=== PATIENT | male | born 1975 | race Hispanic/Latino ===

== ENCOUNTER 2019-07-04 16:14 | Emergency (ER) | payer OTHER ==
[~2019-07-04] VITALS: Ht 180.3 cm; Wt 83.9 kg
--- OUTSIDE RECORDS SUMMARY | 2019-07-04 16:17 | XMS REPORT | Encounter Summary ---
Author Organization Unknown Address [address] [place] [address] Phone [phone] Reason for Visit Medical Complaint Instructions 1. Allergic rhinitis allergies: care instructions managing your allergies: care instructions Depo-Medrol 80 mg/mL suspension for injection 2. Elevated blood pressure elevated blood pressure: care instructions dash diet: care instructions blood pressure monitoring education 3. Body mass index 25-29 - overweight learning about healthy weight Discussion Note: None recorded. Plan of Care Patient Instructions Rhinitis is swelling and irritation in the nose. Allergies and infections are often the cause. Your nose may run or feel stuffy. Other symptoms are itchy and sore eyes, ears, throat, and mouth. If allergies are the cause, your doctor may do tests to find out what you are allergic to. You may be able to stop symptoms if you avoid the things that cause them. Your doctor may suggest or prescribe medicine to ease your symptoms. Follow-up care is a ford part of your treatment and safety. Be sure to make and go to all appointments, and call your doctor if you are having problems. It's also a good idea to know your test results and keep a list of the medicines you take. How can you care for yourself at home? If your rhinitis is caused by allergies, try to find out what sets off (triggers) your symptoms. Take steps to avoid these triggers. Avoid yard work. It can stir up both pollen and mold. Do not smoke or allow others to smoke around you. If you need help quitting, talk to your doctor about stop-smoking programs and medicines. These can increase your chances of quitting for good. Do not use aerosol sprays, cleaning products, or perfumes. If pollen is one of your triggers, close your house and car windows during blooming season. Clean your house often to control dust. Keep pets outside. If your doctor recommends trmj-axv-[id number] medicines to relieve symptoms, take your medicines exactly as prescribed. Call your doctor if you think you are having a problem with your medicine. Use saline (saltwater) nasal washes to help keep your nasal passages open and wash out mucus and bacteria. You can buy saline nose drops at a grocery store or drugstore. Or you can make your own at home by adding 1 teaspoon of salt and 1 teaspoon of baking soda to 2 cups of distilled water. If you make your own, fill a bulb syringe with the solution, insert the tip into your nostril, and squeeze gently. Blow your nose. When should you call for help? Call your doctor now or seek immediate medical care if: You are having trouble breathing. Watch closely for changes in your health, and be sure to contact your doctor if: Mucus from your nose gets thicker (like pus) or has new blood in it. You have new or worse symptoms. You do not get better as expected. Reminders Provider Appointments None recorded. Lab None recorded. Referral None recorded. Procedures None recorded. Surgeries None recorded. Imaging None recorded. Medications Name Start Date Afluria Quad (PF) 60 mcg (15 mcg x 4)/0.5 mL IM syringe ADM 0.5ML IM UTD Elizabeth-D 24 Hour 180 mg-240 mg tablet,extended release TK 1 T PO BID FOR 3 DAYS THEN TAKE PRN ONLY amoxicillin 875 mg-potassium clavulanate 125 mg tablet Take 1 tablet every 12 hours by oral route with meals for 10 days. Claritin-D Depo-Medrol 80 mg/mL suspension for injection 80 mg/mL IM injectable x 1 Dymista 137 mcg-50 mcg/spray nasal spray Take 1 spray twice a day by nasal route as directed. hydrocodone 5 mg-acetaminophen 325 mg tablet levofloxacin 500 mg tablet TK 1 T PO QD Medications Administered Name Date Depo-Medrol 80 mg/mL suspension for injection 80 mg/mL IM injectable x 1 1381-84-37E62:51:29 Vitals Height Weight BMI Blood Pressure 5 ft 11 in 200 lbs 27.9 kg/m2 122/72 mm[Hg] Lab Results None recorded. Allergies Code Code System Name Reaction Severity Status Onset NKDA Problems Name Status Onset Date Source Acute Atopic Conjunctivitis Active Encounter Acute Allergic Serous Otitis Media Active Encounter Dysfunction of Eustachian Tube Active Encounter Acute Suppurative Otitis Media without Spontaneous Rupture of Ear Drum Active Encounter Otitis Media Active Encounter Acute Sinusitis Active Encounter Sinusitis Active Encounter Allergic Rhinitis Active Encounter Dizziness and Giddiness Active Encounter Malaise and Fatigue Active Encounter Procedures None recorded. 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 History of Present Illness Cjibp-Bftntgfmzj-Hdmfjxo Reported By: Patient HPI: Location: head/sinuses. Quality: nasal/sinus congestion. Duration: 1days. Severity: moderate. Onset/Timing: gradual. Context: no sick contacts, no foreign travel, non-smoker. Associated Symptoms: no sputum production, no shortness of breath, no wheezing, no change in number of pillows needed to sleep at night, no sweats, no significant weight gain, no significant weight loss, no morning cough, no sore throat, no vomiting, no diarrhea, no rash, no nausea, no fever, no muscle aches, no headache Review of Systems:ROS as noted in the HPI Review of Systems Basic Reported By: Patient Physical Exam Adult Basic, Adult Male Complete Reported By: Patient Constitutional: General Appearance: healthy-appearing, well-nourished, well-developed, overweight. Level of Distress: NAD. Ambulation: ambulating normally Psychiatric: Mental Status: active and alert. Orientation: to time, to place, to person Ssr-Vxwf-Xucuu-Throat: Ears: no lesions on external ear, no outer ear tenderness, EACs clear, TMs clear. Hearing: no hearing loss. Nose: no lesions on external nose, nares patent, no septal deviation, nasal passages clear, no sinus tenderness, no nasal discharge. Lips, Teeth, and Gums: no mouth or lip ulcers, no bleeding gums, normal dentition. Oropharynx: moist mucous membranes, no erythema, no exudates, tonsils not enlarged Lungs: Respiratory effort: no dyspnea, no tachypnea, no use of accessory muscles, no intercostal retractions. Auscultation: breath sounds normal, good air movement Cardiovascular: Heart Auscultation: RRR, no murmurs
--- OUTSIDE RECORDS SUMMARY | 2019-07-04 16:17 | XMS REPORT | Continuity of Care Document ---
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 Name Role Phone [employer] Unavailable Unavailable Problems Problem Status Onset Date Classification Date Reported Comments Source Body mass index 25-29 - overweight 09/16/2018 Diagnosis 09/19/2018 [facility] Elevated blood pressure 09/16/2018 Diagnosis 09/19/2018 [facility] Acute atopic conjunctivitis Problem 09/19/2018 [facility] Acute allergic serous otitis media Problem 09/19/2018 [facility] Dysfunction of eustachian tube Problem 09/19/2018 [facility] Acute suppurative otitis media without spontaneous rupture of ear drum Problem 09/19/2018 [facility] Otitis media Problem 09/19/2018 [facility] Acute sinusitis Problem 09/19/2018 [facility] Sinusitis Problem 09/19/2018 [facility] Allergic rhinitis Problem 09/19/2018 [facility] Dizziness and giddiness Problem 09/19/2018 [facility] Malaise and fatigue Problem 09/19/2018 [facility] Medications Medication Details Route Status Patient Instructions Ordering Provider Order Date Source 0.5 ML influenza A virus A//[id number] (H1N1) antigen 0.03 MG/ML / influenza A virus A/[id number] (H3N2) antigen 0.03 MG/ML / influenza B virus B/[place] antigen 0.03 MG/ML / influenza B virus B/[facility] antigen 0.03 MG/ML Prefilled Syringe [Afluria Quadrivalent [id number]] Afluria Quad [id number] (PF) 60 mcg (15 mcg x 4)/0.5 mL IM syringe ADM 0.5ML IM UTD Active [facility] 24 HR Fexofenadine hydrochloride 180 MG / Pseudoephedrine Hydrochloride 240 MG Extended Release Oral Tablet [Elizabeth-D] Elizabeth-D 24 Hour 180 mg- 240 mg tablet,extended release TK 1 T PO BID FOR 3 DAYS THEN TAKE PRN ONLY Active [facility] Amoxicillin 875 MG / Clavulanate 125 MG Oral Tablet amoxicillin 875 mg-potassium clavulanate 125 mg tablet Take 1 tablet every 12 hours by oral route with meals for 10 days. Active [facility] Claritin-D Claritin-D Active [facility] 1 ML methylprednisolone acetate 80 MG/ML Injection [Depo-Medrol] Depo-Medrol 80 mg/mL suspension for injection 80 mg/mL IM injectable x 1 Active [facility] Azelastine hydrochloride 0.137 MG/ACTUAT / Fluticasone propionate 0.05 MG/ACTUAT Metered Dose Nasal [place] [Dymista] Dymista 137 mcg-50 mcg/spray nasal spray Take 1 spray twice a day by nasal route as directed. Active [facility] Acetaminophen 325 MG / Hydrocodone Bitartrate 5 MG Oral Tablet hydrocodone 5 mg-acetaminophen 325 mg tablet Active [facility] Levofloxacin 500 MG Oral Tablet levofloxacin 500 mg tablet TK 1 T PO QD Active [facility] Allergies, Adverse Reactions, Alerts No Known Medication Allergies Immunizations Immunization Date Given Site Status Last Updated Comments Source influenza, seasonal, injectable 08/10/2013 completed [facility] Results No Data Provided for This Section Pathology Reports No Data Provided for This Section Diagnostic Reports No Data Provided for This Section Consultation Notes No Data Provided for This Section Discharge Summaries No Data Provided for This Section History and Physicals No Data Provided for This Section Vital Signs Vital Sign Value Date Comments Source Diastolic (mm Hg) 72 09/16/2018 [facility] Height 71 09/16/2018 [facility] Systolic (mm Hg) 122 09/16/2018 [facility] Weight 200 09/16/2018 [facility] Encounters Location Location Details Encounter Type Encounter Number Reason For Visit Attending Provider ADM Date DC Date Status Source [place] - [facility] - [id number] Meek-C: [address] [place] [address], Ph. [id number] Lynn Pinzon 09/16/2018 [facility] [place] [facility] - [id number] Meek-C: [address], [place] [address], Ph. [id number] Lynn Tangwe 09/16/2018 [facility] Procedures No Data Provided for This Section Assessment and Plan No Data Provided for This Section Plan of Care No Data Provided for This Section Social History Social History Date Source Smoking Status Never Smoker 07/13/2011 [facility] Family History No Data Provided for This Section Advance Directives No Data Provided for This Section Functional Status No Data Provided for This Section
--- OUTSIDE RECORDS SUMMARY | 2019-07-04 16:17 | XMS REPORT | Encounter Summary ---
Author Organization Unknown Address [address] [place] [address] Phone [phone] Reason for Visit Medical Complaint Instructions 1. [...] Keep pets outside. If your doctor recommends hprw-iur-iwruvga medicines to relieve symptoms, take your medicines [...] Imaging None recorded. Medications Name Start Date Jannette Quad (PF) 60 mcg/0.5 mL intramuscular syringe ADM 0.5ML IM UTD Elizabeth-D 24 [...] injection 80 mg/mL IM injectable x 1 9570-85-22Q16:51:29 Vitals Height Weight BMI Blood Pressure 5 [...] Body Mass Index 25-29 - Overweight Lynn Pinzon, CONCRETE STONE FABRICATOR-C: [address] [place] [address], Ph. History of Present Illness Ekdip-[id number]-[id number] Reported By: Patient HPI: Location: head/sinuses. Quality: [...] Orientation: to time, to place, to person Kbi-Nihi-Wkyry-Throat: Ears: no lesions on external ear, no [...]
[2019-07-04] MEDS ORDERED: NAPROSYN500 MG PO (16:43)
--- NOTE | 2019-07-04 17:14 | Diagnostic Imaging Report ---
Exam: Head CT without contrast History: Headache, neck pain Comparison studies: None Technique: Axial images were obtained from the skull base to the vertex. Coronal and sagittal images reconstructed from the axial data. Dose modulation, iterative reconstruction, and/or weight based adjustment of the mA/kV was utilized to reduce the radiation dose to as low as reasonably achievable. Radiation dose: Total DLP: 969 mGy*cm. Estimated effective dose: DLP x 0.015 Intravenous contrast: None Findings: Scalp: No abnormalities. Bones: No fractures, blastic or lytic lesions. Brain sulci: Appropriate for age. Ventricles: Normal in size and configuration. No hydrocephalus. Extra-axial spaces: No masses, no fluid collection. Parenchyma: No abnormal densities. No masses, acute hemorrhage, acute or chronic vascular insults. Incidental all punctate physiologic calcifications in the left globus pallidus. Sellar/suprasellar region: No abnormalities. Craniocervical junction: Patent foramen magnum. No Chiari one malformation. Included paranasal sinuses: Clear. Middle ear and mastoids: Clear. IMPRESSION: No abnormalities. Signed by: Dr. Abisai Gastelum M.D. on 07/04/2019 5:11 PM
--- NOTE | 2019-07-04 17:20 | Diagnostic Imaging Report ---
EXAMINATION: C SPINE 4-5 VIEW - HOPD INDICATION: Neck pain COMPARISON: None FINDINGS: No acute fracture. Alignment is anatomic. Mild multilevel degenerative changes of the cervical spine with disc space narrowing and small osteophytes. The prevertebral soft tissues are normal in thickness. IMPRESSION: Anatomic alignment of the cervical spine with no acute osseous injury. Mild degenerative changes. Signed by: Carlo Garber MD on 07/04/2019 5:17 PM
[2019-07-04 18:02] VITALS: BP 137/79
== END 2019-07-04 18:04 | disposition home or self-care (01) ==
LOC: FSED 16:14
DX: G43.109 Migraine with aura, not intractable, without status migrainosus (principal); G44.1 Vascular headache, not elsewhere classified; G44.89 Other headache syndrome; M54.2 Cervicalgia
CPT/HCPCS: 70450; 72050; 99283

== ENCOUNTER 2020-04-03 19:55 | Emergency (ER) | payer OTHER ==
[~2020-04-03] VITALS: Ht 180.3 cm; Wt 83.9 kg
[~2020-04-03 19:55] MED LIST: NAPROSYN500 MG PO
--- NOTE | 2020-04-03 21:17 | Diagnostic Imaging Report ---
EXAMINATION: Head CT without contrast. HISTORY:Pain, fall. COMPARISON:CT brain from 07/04/2019. TECHNIQUE: Multidetector axial images were obtained from the foramen magnum to the vertex without contrast. The images were reconstructed using brain and bone algorithms. Thin section brain images were reformatted into coronal and sagittal planes. Dose modulation, iterative reconstruction, and/or weight based adjustment of the mA/kV was utilized to reduce the radiation dose to as low as reasonably achievable. Intravenous contrast: None IMAGE QUALITY: Acceptable. FINDINGS: Skull/scalp: No lytic or blastic. lesions. No surgical changes. Parenchyma: No abnormal density. No acute hemorrhage, mass or acute major vascular territorial infarct. Arteries: No density suggestive of thrombosis. Dural sinuses: No abnormal density suggestive of thrombosis. Ventricles: No hydrocephalus or displacement. Extra-axial spaces: No abnormal density. Brain volume: Normal for age. Craniocervical junction: No mass, Chiari malformation, or basilar invagination. Sella: No mass. Paranasal/mastoid sinuses: Imaged portions unremarkable. IMPRESSION: No intracranial abnormality. Signed by: Dr. Valentine Valle M.D. on 04/03/2020 9:14 PM
--- NOTE | 2020-04-03 21:22 | Diagnostic Imaging Report ---
History: Pain, fall. Comparison studies: X-ray cervical spine from 07/04/2019. Technique: Axial images were obtained through the cervical region.. Coronal and sagittal images reconstructed from the axial data. Dose modulation, iterative reconstruction, and/or weight based adjustment of the mA/kV was utilized to reduce the radiation dose to as low as reasonably achievable. Intravenous contrast: None Findings: Fractures: None. Soft tissue injuries: None. Atlantoaxial articulation: Intact. Alignment: Normal lordosis. No scoliosis. No subluxation Cervicomedullary junction: No abnormalities. The foramen magnum is patent. Soft tissues: No abnormalities. Vertebrae: No fractures, infection or neoplasm. Degenerative changes: C5-C6: Mild left foraminal stenosis due to facet and uncovertebral arthrosis.. IMPRESSION: 1. No acute cervical spine fracture or dislocation. 2. Ligament, spinal cord and or vascular abnormalities cannot be excluded on the basis of this examination. 3. Mild left foraminal stenosis due to facet and uncovertebral arthrosis at C5-C6. Signed by: Dr. Valentine Valle M.D. on 04/03/2020 9:18 PM
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
== END 2020-04-03 22:00 | disposition home or self-care (01) ==
LOC: FSED 19:55
DX: M54.12 Radiculopathy, cervical region (principal); M79.18 Myalgia, other site; F41.9 Anxiety disorder, unspecified
CPT/HCPCS: 70450; 72125; 99283

== ENCOUNTER 2020-11-15 19:32 | Emergency (ER) | payer OTHER ==
[~2020-11-15] VITALS: Ht 180.3 cm; Wt 83.9 kg
== END 2020-11-15 20:23 | disposition home or self-care (01) ==
LOC: FSED 19:55
DX: R07.89 Other chest pain (principal); M25.512 Pain in left shoulder; F41.9 Anxiety disorder, unspecified; E78.5 Hyperlipidemia, unspecified
CPT/HCPCS: 93005; 99283

== ENCOUNTER 2021-03-15 19:26 | Emergency (ER) | payer OTHER ==
[~2021-03-15] VITALS: Ht 180.3 cm; Wt 83.9 kg
[2021-03-15 21:42] VITALS: BP 142/90
== END 2021-03-15 21:42 | disposition home or self-care (01) ==
LOC: FSED 20:05
DX: R42 Dizziness and giddiness (principal); F41.9 Anxiety disorder, unspecified; E78.5 Hyperlipidemia, unspecified
CPT/HCPCS: 80053; 81003; 85025; 93005; 99283

== ENCOUNTER → 2021-04-17 | Day surgery (SDC) | payer OTHER ==
[~2021-04-17] MED LIST changes: +BUPIVACAINE HCL 0.5% INJ 30 ML VIAL INJ ONE; +DEXAMETHASONE SOD PHOS INJ 4 MG/ML VIAL ONE; +FENTANYL CITRATE/PF 100MCG/2 ML INJ ONE; +FISH OIL PO; +LIDOCAINE HCL 2% LOCAL INJ 5 ML SDV VIAL INJ ONE; +MIDAZOLAM HCL 2 MG/2 ML VIAL ONE; +MULTI-VITAMIN1 EACH PO; +ONDANSETRON HCL INJ 2MG/ML 2ML 2 MG/ML VIAL ONE; +POVIDONE IODINE 0.05% 0.05 % ML PO ONE; +PROPOFOL IV EMULSION 10 MG/ML 20 ML VIAL ONE; +SEVOFLURANE INHAL SOLN 250 ML PEN BTL ONE; +SODIUM CHLORIDE 0.9% 50ML 50 ML ONE
[2021-04-17 08:15] VITALS: BP 123/86
== END | disposition home or self-care (01) ==
LOC: OR 05:23
PROVIDERS: ATTEND Podiatrist Foot & Ankle Surgery
DX: M77.52 Other enthesopathy of left foot and ankle (principal)
CPT/HCPCS: 28108 ×2; J0690; J1100; J2001; J2250; J2405; J2704; J3010

== ENCOUNTER 2021-11-20 15:29 | Emergency (ER) | payer OTHER ==
[~2021-11-20] VITALS: Ht 180.3 cm; Wt 83.9 kg
[~2021-11-20 15:29] MED LIST changes: -BUPIVACAINE HCL 0.5% INJ 30 ML VIAL INJ ONE; -DEXAMETHASONE SOD PHOS INJ 4 MG/ML VIAL ONE; -FENTANYL CITRATE/PF 100MCG/2 ML INJ ONE; -LIDOCAINE HCL 2% LOCAL INJ 5 ML SDV VIAL INJ ONE; -MIDAZOLAM HCL 2 MG/2 ML VIAL ONE; -ONDANSETRON HCL INJ 2MG/ML 2ML 2 MG/ML VIAL ONE; -POVIDONE IODINE 0.05% 0.05 % ML PO ONE; -PROPOFOL IV EMULSION 10 MG/ML 20 ML VIAL ONE; -SEVOFLURANE INHAL SOLN 250 ML PEN BTL ONE; -SODIUM CHLORIDE 0.9% 50ML 50 ML ONE
[2021-11-20] MEDS ORDERED: SODIUM CHLORIDE 0.9% 1000ML 1,000 ML IV STA (15:48)
[2021-11-20 16:15] LABS: BASOPHILS # (AUTO) 0.1 (0.0-0.1); BASOPHILS % 0.7 % (0.0-1.0); EOSINOPHILS # (AUTO) 0.2 (0.0-0.4); EOSINOPHILS % 2.2 % (0.0-6.0); HEMATOCRIT 46.8 % (38.2-49.6); HEMOGLOBIN 15.1 g/dL (14.0-18.0); LYMPHOCYTES # (AUTO) 2.4 (1.0-3.2); LYMPHOCYTES % 32.7 % (18.0-39.1); MEAN CORPUSCULAR HEMOGLOBIN 28.4 pg (28-32); MEAN CORPUSCULAR HGB CONC 32.3 g/dL (31-35); MONOCYTES # (AUTO) 0.5 (0.2-0.8); MONOCYTES % 6.9 % (4.4-11.3); NEUTROPHILS # (AUTO) 4.2 (2.1-6.9); NEUTROPHILS % 57.2 % (38.7-80.0); PLATELET COUNT 184 x10e3/uL (140-360); RED BLOOD COUNT 5.32 x10e6/uL (4.3-5.7); RED CELL DISTRIBUTION WIDTH 12.7 % (11.7-14.4)
[2021-11-20 16:25] LABS: PROTHROMBIN TIME 13.9 seconds (11.9-14.5)
[2021-11-20 16:36] LABS: ALANINE AMINOTRANSFERASE 42 IU/L (0-55); ALBUMIN 4.3 g/dL (3.5-5.0); ALBUMIN/GLOBULIN RATIO 1.5 (0.8-2.0); ALKALINE PHOSPHATASE 83 IU/L (40-150); ANION GAP 12.9 mmol/L (8-16); BLOOD UREA NITROGEN 14 mg/dL (7-26); BUN/CREATININE RATIO 15 (6-25); CALCIUM 9.3 mg/dL (8.4-10.2); CARBON DIOXIDE 25 mmol/L (22-29); CHLORIDE 105 mmol/L (98-107); CREATINE KINASE 118 IU/L (30-200); CREATININE, SERUM 0.94 mg/dL (0.72-1.25); EST GLOMERULAR FILTRATION RATE 86 ML/MIN (60-); GLUCOSE 105 mg/dL (74-118); LIPASE 26 U/L (8-78); POTASSIUM 3.9 mmol/L (3.5-5.1); SODIUM 139 mmol/L (136-145)
[2021-11-20] MEDS ORDERED: BELLADONNA ALK/PHENOBARBITAL 5 ML UDC PO ONE (17:15)
[2021-11-20] MEDS ORDERED: LIDOCAINE VISC 2% SOLN 15 ML UDC PO ONE (17:15)
[2021-11-20] MEDS ORDERED: MAGNESIUM/ALUMINUM/SIMETHICONE 30 ML UDC PO ONE (17:15)
[2021-11-20 17:57] LABS: AMPHETAMINES SCREEN,URINE NEGATIVE (NEGATIVE); PHENCYCLIDINE SCREEN,URINE NEGATIVE (NEGATIVE)
[2021-11-20 17:58] LABS: BENZODIAZEPINES SCREEN,URINE NEGATIVE (NEGATIVE)
== END 2021-11-20 18:15 | disposition home or self-care (01) ==
LOC: ER 15:51
DX: R07.89 Other chest pain (principal); K21.9 Gastro-esophageal reflux disease without esophagitis; E78.5 Hyperlipidemia, unspecified; F41.9 Anxiety disorder, unspecified
CPT/HCPCS: 36415; 71045; 80053; 80307; 82550; 82553; 83690; 83735; 84484; 85025; 85379; 85610; 85730; 93005; 99284; C9113; J7030

== ENCOUNTER → 2024-08-21 | Day surgery (SDC) | payer OTHER ==
[~2024-08-21] MED LIST changes: +BUPIVACAINE HCL 0.5% INJ 30 ML VIAL INJ ONE; +DEXAMETHASONE SOD PHOS INJ 4 MG/ML SDV ONE; +FENTANYL CITRATE/PF 100MCG/2 ML INJ ONE; +HYOSCYAMINE0.125 M1 PO; +KETAMINE HCL INJ 50 MG/ML 10 ML VIAL ONE; +LIDOCAINE HCL 2% LOCAL INJ 5 ML SDV VIAL INJ ONE; +MIDAZOLAM HCL 2 MG/2 ML VIAL ONE; +NEOSTIGMINE 1 MG/ML 10ML VIAL ONE; +OMEPRAZOLE40 MG PO; +PROPOFOL IV EMULSION 0 ML IV ONE; +PROPOFOL IV EMULSION 10 MG/ML 20 ML VIAL ONE; +SODIUM CHLORIDE 0.9% 100 ML ONE
[2024-08-21] MEDS: LACTATED RINGER'S 1,000 ML ONE (06:22)
[2024-08-21 07:27] VITALS: TEMP 97.4
[2024-08-21 08:15] VITALS: BP 121/82; PULSE 58; RESP 16; O2SAT 96
== END | disposition home or self-care (01) ==
LOC: OR 05:52
PROVIDERS: ATTEND Podiatrist Foot & Ankle Surgery
DX: M20.42 Other hammer toe(s) (acquired), left foot (principal); K21.9 Gastro-esophageal reflux disease without esophagitis; F41.9 Anxiety disorder, unspecified
CPT/HCPCS: 28285; J0690; J1100; J2003; J2250; J2704; J3010; J7050; J7121; J2710

== ENCOUNTER 2025-07-02 18:53 | Emergency (ER) | payer OTHER ==
[~2025-07-02] VITALS: Ht 180.3 cm; Wt 88.0 kg
[~2025-07-02 18:53] MED LIST changes: -BUPIVACAINE HCL 0.5% INJ 30 ML VIAL INJ ONE; -DEXAMETHASONE SOD PHOS INJ 4 MG/ML SDV ONE; -FENTANYL CITRATE/PF 100MCG/2 ML INJ ONE; -KETAMINE HCL INJ 50 MG/ML 10 ML VIAL ONE; -LIDOCAINE HCL 2% LOCAL INJ 5 ML SDV VIAL INJ ONE; -MIDAZOLAM HCL 2 MG/2 ML VIAL ONE; -NEOSTIGMINE 1 MG/ML 10ML VIAL ONE; -PROPOFOL IV EMULSION 0 ML IV ONE; -PROPOFOL IV EMULSION 10 MG/ML 20 ML VIAL ONE; -SODIUM CHLORIDE 0.9% 100 ML ONE
[2025-07-02 19:03] VITALS: PULSE 83; RESP 18; TEMP 98.1
[2025-07-02] MEDS: CYCLOBENZAPRINE HCL 10 MG TAB PO ONE (20:23)
[2025-07-02] MEDS: KETOROLAC TROMETHAMINE 30 MG/ML VIAL IV STA (20:23)
[2025-07-02] MEDS ORDERED: KETOROLAC TROME10 MG PO (20:40)
[2025-07-02] MEDS ORDERED: CYCLOBENZAPRINE5 MG PO (20:40)
[2025-07-02 21:00] VITALS: BP 138/87; PULSE 80; RESP 18; TEMP 98; O2SAT 96
== END 2025-07-02 21:00 | disposition home or self-care (01) ==
LOC: FSED 19:02
DX: M25.512 Pain in left shoulder (principal); K29.70 Gastritis, unspecified, without bleeding; E78.5 Hyperlipidemia, unspecified; K21.9 Gastro-esophageal reflux disease without esophagitis; F41.9 Anxiety disorder, unspecified; R94.31 Abnormal electrocardiogram [ECG] [EKG]
CPT/HCPCS: 71046; 73030; 80048; 80076; 84484; 85025; 99283; J1885